=== PATIENT | female | born 1955 | race Caucasian/White ===

== ENCOUNTER 2017-08-22 15:41 | Emergency (ER) | payer OTHER ==
[~2017-08-22] VITALS: Ht 177.8 cm; Wt 69.9 kg
--- NOTE | 2017-08-22 15:52 | NUR ---
pt to er bed 10. presents w/ l wrist deformity s/p fall while playing handball. denies any other injury. no loss of sensation, no tinggling. stable vitals. awaiting md plasencia.
--- NOTE | 2017-08-22 16:10 | NUR ---
dr harry at bedside for eval.
--- NOTE | 2017-08-22 16:23 | NUR ---
radiology at bedside for l wrist xray.
[2017-08-22] MEDS ORDERED: ONDANSETRON HCL/PF - ER 4 MG/2 ML VIAL IV ONE (16:30)
[2017-08-22] MEDS ORDERED: MORPHINE SULFATE INJ 2 MG/ML DISP.SYRIN IV ONE (16:30)
[2017-08-22] MEDS ORDERED: ONDANSETRON HCL/PF 4 MG/2 ML VIAL ONE (16:31)
[2017-08-22] MEDS ORDERED: MORPHINE SULFATE INJ 4 MG/ML DISP.SYRIN ONE (16:31)
--- NOTE | 2017-08-22 17:11 | NUR ---
CALLED DARION MADISON, DRIVER MEDIC WAS PAGED.
[2017-08-22 18:06] VITALS: BP 138/67
--- NOTE | 2017-08-22 18:06 | NUR ---
splint applied. Patient discharged to home in stable condition. Written and verbal after care instructions given. Patient verbalizes understanding of instruction.IV removed. Catheter intact and site benign. Pressure and 4x4 applied to site. No bleeding noted.
== END 2017-08-22 18:07 | disposition home or self-care (01) ==
LOC: ER 15:45
DX: S52.592A Other fractures of lower end of left radius, initial encounter for closed fracture (principal); W18.39XA Other fall on same level, initial encounter; Y93.73 Activity, racquet and hand sports; Y92.89 Other specified places as the place of occurrence of the external cause; Y99.8 Other external cause status
CPT/HCPCS: 29125; 73110; 96374; 96375; 99284; A4606; J2270; J2405 ×2; Z7610